=== PATIENT | male | born 1955 | race Hispanic/Latino ===

== ENCOUNTER 2019-04-03 18:19 | Inpatient (IN) | payer MEDICARE ==
[2019-04-03] MEDS ORDERED: EPINEPHrine 1 MG/ML AMP ONE (18:24)
[2019-04-03 18:39] LABS: #Basophils 0.1 thou/uL (0.0-0.2); #Eosinphils 0.1 thou/uL (0.0-0.7); #Lymphocytes 1.4 thou/uL (1.20-3.40); #Monocytes 0.7 thou/uL (0.11-0.59); #Neutrophils 8.4 thou/uL (1.40-6.50); %Basophils 0.8 % (0.0-1.0); %Eosinophils 1.2 % (0.0-10.0); %Lymphocytes 13.3 % (21.0-51.0); %Monocytes 6.6 % (0.0-10.0); %Neutrophils 78.1 % (42.0-75.0); Hemoglobin 12.3 g/dL (14.0-18.0); Mean Corpuscular HGB CONC 34.4 g/dL (32.0-36.0); Mean Corpuscular Hemoglobin 30.4 pg (27.0-31.0); Mean Corpuscular Volume 88.5 fL (78.0-98.0); Mean Platelet Volume 8.9 fL (7.4-10.4); Platelet Count 331 thou/uL (130-400); RBC Distribution Width 11.7 % (11.5-14.5); Red Blood Cell (RBC) Count 4.03 mill/uL (4.70-6.10); White Blood Cell (WBC) Count 10.8 thou/uL (4.8-10.8)
[2019-04-03 18:55] LABS: Phosphorus 4.9 mg/dL (2.3-4.7)
[2019-04-03] MEDS ORDERED: Albuterol Sulfate 2.5 mg/3 ml Neb ONE (18:57)
[2019-04-03 18:58] LABS: ALT (SGPT) 19 U/L (8-55); AST (SGOT) 17 U/L (5-34); Albumin 3.6 g/dL (3.4-4.8); Alkaline Phosphatase 171 U/L (40-110); Anion Gap 17 mmol/L (10-20); BUN (Urea Nitrogen) 36 mg/dL (8.4-25.7); Bilirubin, Total 0.7 mg/dL (0.2-1.2); Calc. Creatinine Clearance 0 mL/min (70-130); Calcium 9.7 mg/dL (7.8-10.44); Carbon Dioxide 27 mmol/L (23-31); Chloride 99 mmol/L (98-107); Estimated GFR-MDRD 58; Globulin 2.9 g/dL (2.4-3.5); Glucose 469 mg/dL (80-115); Potassium 4.7 mmol/L (3.5-5.1); Protein, Total 6.5 g/dL (5.8-8.1); Sodium 138 mmol/L (136-145)
--- NOTE | 2019-04-03 18:59 | RAD ---
AP CHEST: 04/03/19 HISTORY: Dyspnea. Lungs appear clear. Heart size is mildly prominent with postop sternotomy change. Vascular markings n ormal. IMPRESSION: No acute abnormality. POS: OFF
[2019-04-03 19:05] LABS: Bacteria/HPF None Seen HPF (None Seen); Bilirubin Negative (Negative); Blood, Urine Negative (Negative); Clarity Clear (Clear); Glucose, Urine (Dipstick) Greater than 1000 mg/dL (Negative); Leukocyte Negative Leu/uL (Negative); Nitrite Negative (Negative); Protein, Urine (Dipstick) 50 mg/dL (Neg-Trace); RBC/HPF 0-3 HPF (0-3); Squamous Epithelial 0-3 HPF (0-3); Urobilinogen Normal mg/dL (Less than 2); WBC/HPF 0-3 HPF (0-3)
[2019-04-03 19:07] LABS: Actual Bicarbonate (HCO3a) 26.9 mEq/L (22-28); Analyzer IN Cardio ER; Base Excess (BEa) 2.9 mEq/L (-2.0 to +3.0); CO2 Tension 39.2 mmHg (35.0-45.0); Calcium, Ionized 1.23 mmol/L (1.12-1.30); Carboxyhemoglobin (COHb) 0.3 gm% (0.0-3.0); Hemoglobin (Hb) 12.1 g/dL (14.0-18.0); Potassium - ABG Lab 4.19 mmol/L (3.70-5.30); pH, Arterial 7.46 (7.35-7.45)
[2019-04-03 19:24] LABS: O2 Tension (PaO2) 54.7 mmHg (> 80.0); Puncture Site RBA
[2019-04-03 20:01] LABS: Actual Bicarbonate (HCO3a) 25.7 mEq/L (22-28); Analyzer IN Cardio ER; Base Excess (BEa) 0.9 mEq/L (-2.0 to +3.0); CO2 Tension 41.6 mmHg (35.0-45.0); Calcium, Ionized 1.21 mmol/L (1.12-1.30); Carboxyhemoglobin (COHb) 0.3 gm% (0.0-3.0); Hemoglobin (Hb) 11.1 g/dL (14.0-18.0); O2 Tension (PaO2) 86.4 mmHg (> 80.0); Potassium - ABG Lab 4.08 mmol/L (3.70-5.30); pH, Arterial 7.41 (7.35-7.45)
--- NOTE | 2019-04-03 20:03 | RAD ---
Portable chest: HISTORY: Assess central line placement COMPARISON: Earlier today at 6:12 PM FINDINGS: Lung mckeon are clear. Heart and mediastinum appear unremarkable. Postop sternotomy changes again noted. Vascularity is normal. Visualized osseous structures unremarkable. Central line via the left jugular has tip overlying the upper SVC region. IMPRESSION: No acute finding
[2019-04-03 20:06] LABS: Puncture Site LBA
[2019-04-03] MEDS ORDERED: Acetaminophen 650 MG Suppository PR PRN (21:02)
[2019-04-03] MEDS ORDERED: Ondansetron ODT 4 MG TAB PO PRN (21:02)
[2019-04-03] MEDS ORDERED: Ondansetron PF 4 MG/2 ML Vial IVP PRN ×2 (21:02→21:06)
[2019-04-03] MEDS ORDERED: Sodium Chloride 0.9% 1,000 ML IV SCH (21:06)
[2019-04-03] MEDS ORDERED: Ondansetron ODT 4 MG TAB SL PRN (21:06)
[2019-04-03] MEDS ORDERED: EPINEPHrine 1 MG/ML AMP IM PRN (21:07)
[2019-04-03] MEDS ORDERED: Dextrose 50% Abboject 50 ML SYRINGE SLOW IVP PRN (21:09)
[2019-04-03] MEDS ORDERED: Dextrose 5% in Water 1,000 ML IV PRN (21:09)
[2019-04-03 22:25] LABS: Troponin I Less than 0.010 ng/mL (< 0.028)
[2019-04-03 22:39] VITALS: BMI 23.5
[2019-04-03] MEDS: Sodium Chloride 0.9% 1,000 ML IV SCH (23:49)
[2019-04-04] MEDS: NOVOLOG FLEXPEN SC SCH ×5 (00:05→22:41)
[2019-04-04 00:52] LABS: Troponin I 0.021 ng/mL (< 0.028)
[2019-04-04] MEDS: diphenhydrAMINE 50 MG/ML VIAL IVP PRN ×2 (01:33→06:05)
[2019-04-04 04:56] LABS: Anion Gap 12 mmol/L (10-20); BUN (Urea Nitrogen) 32 mg/dL (8.4-25.7); Calc. Creatinine Clearance 92 mL/min (70-130); Calcium 9.2 mg/dL (7.8-10.44); Carbon Dioxide 26 mmol/L (23-31); Chloride 104 mmol/L (98-107); Estimated GFR-MDRD Greater than 90; Glucose 224 mg/dL (80-115); Potassium 4.3 mmol/L (3.5-5.1); Sodium 138 mmol/L (136-145)
[2019-04-04 05:02] LABS: Band 8 % (5-11); Eosinophils 1 % (0-10); Hemoglobin 10.4 g/dL (14.0-18.0); Lymphocytes 4 % (21-51); MDiff Complete? YES; Mean Corpuscular Hemoglobin 29.9 pg (27.0-31.0); Mean Corpuscular Volume 87.9 fL (78.0-98.0); Mean Platelet Volume 8.9 fL (7.4-10.4); Neutrophil 86 % (42-75); Platelet Count 244 thou/uL (130-400); Platelet Morphology Comment Appears Adequate; RBC Distribution Width 11.4 % (11.5-14.5); RBC Morphology Normal; Reactive Lymphocytes 1 % (0-10); Red Blood Cell (RBC) Count 3.47 mill/uL (4.70-6.10); White Blood Cell (WBC) Count 14.1 thou/uL (4.8-10.8)
[2019-04-04] MEDS: Acetaminophen 325 MG TAB PO PRN (05:08)
[2019-04-04] MEDS: Sodium Chloride 0.9% 1,000 ML IV SCH (07:43)
[2019-04-04] MEDS: Enoxaparin Sodium 40 MG/0.4 ML SYRINGE SC SCH (08:10)
[2019-04-04] MEDS: Famotidine/PF 20 mg/2ml Vial SLOW IVP SCH ×2 (08:10→21:28)
--- NOTE | 2019-04-04 15:20 | PDOC.HOSPP ---
- Subjective Subjective: Patient is minimally verbal and severely hypophonic. Cannot effectively communicate. - Objective Vital Signs & Weight: Vital Signs (12 hours) Temp Pulse Ox 04/04/19 12:00 98.1 F 100 04/04/19 08:00 99.1 F 100 04/04/19 07:02 100 04/04/19 05:00 97.6 F Weight Weight 163 lb 12.855 oz Most Recent Monitor Data Heart Rate from ECG 91 NIBP 155/90 NIBP BP-Mean 111 Respiration from ECG 19 SpO2 100 I&O: 04/03/19 04/04/19 04/05/19 06:59 06:59 06:59 Intake Total 20 Output Total 660 420 Balance -660 -400 Result Diagrams: 04/04/19 04:30 04/04/19 04:30 Additional Labs: Accuchecks 04/04/19 04/03/19 11:19 18:39 POC Glucose 147 H 400 H Hospitalist ROS - Medication Medications: Active Medications Generic Name Dose Route Start Last Admin Trade Name Ravinq PRN Reason Stop Dose Admin Acetaminophen 650 mg 04/03/19 21:02 04/04/19 05:08 Tylenol PO 650 mg Q4H PRN Administration Headache/Fever/Mild Pain (1-3) Diphenhydramine HCl 50 mg 04/03/19 21:05 04/04/19 06:05 Benadryl IVP 50 mg Q6H PRN Administration rash Enoxaparin Sodium 40 mg 04/04/19 09:00 04/04/19 08:10 Lovenox SC 40 mg 0900 PÉREZ Administration Famotidine 20 mg 04/04/19 09:00 04/04/19 08:10 Pepcid SLOW IVP 20 mg BID PÉREZ Administration Novolog Flexpen 0 each 04/04/19 09:00 04/04/19 12:48 SC Not Given QID PÉREZ - Exam General Appearance: NAD, awake alert General - other findings: Chronically debilitated ENT: normocephalic atraumatic Neck: supple, symmetric, no JVD, no thyromegaly, no lymphadenopathy, no carotid bruit Heart: RRR, no murmur, no gallops Respiratory: CTAB, no wheezes, no rales, no ronchi, normal chest expansion Gastrointestinal: soft, non-tender, non-distended, normal bowel sounds, no palpable masses, no hepatomegaly, no splenomegaly, no bruit Gastrointestinal - other findings: PEG Extremities: no edema Neurological - other findings: Legs immobile. UE's contracted, but have some movement. Musculoskeletal: generalized weakness Hosp A/P (1) Anoxic brain damage syndrome Status: Acute (2) Anaphylactic reaction Code(s): T78.2XXA - ANAPHYLACTIC SHOCK, UNSPECIFIED, INITIAL ENCOUNTER Status : Acute (3) Acute respiratory failure with hypoxia Code(s): J96.01 - ACUTE RESPIRATORY FAILURE WITH HYPOXIA Status: Acute - Plan This patient came from [facility]. I don't have all of the history, but apparently had a respiratory event leading to anoxic brain injury, LE paralysis and incomplete UE paralysis. Has PEG tube and per nurse the feeding regimen is Glucerna at 60 cc/hr x 20 hours per day. Will resume feeds. No evidence of persistent allergic reaction. Medically stable for discharge, but family has decided they want to take him home. Consulted CM. He will be total care with PEG. They will need HH and possibly some DME. Will transfer to the Medical floor. Will get PT, OT consults to assist with determining home needs.
[2019-04-04] MEDS ORDERED: Dextrose 50% Abboject 50 ML SYRINGE SLOW IVP PRN (15:27)
[2019-04-04] MEDS ORDERED: Dextrose 5% in Water 1,000 ML IV PRN (15:27)
[2019-04-04] MEDS ORDERED: Acetaminophen 325 MG TAB PO PRN (15:48)
[2019-04-04] MEDS ORDERED: Non-Formulary Item 1 EACH (Insulin Detemir [Levemir] 50 UNITS) SQ SCH (21:00)
[2019-04-04] MEDS ORDERED: FLU VACC TS2019-20(65YR UP)/PF 180 MCG/0.5 ML SYRINGE IM ONE (21:00)
[2019-04-04] MEDS ORDERED: Prevnar 13-Val Conj/PF 0.5 ML SYRINGE IM ONE (21:00)
[2019-04-04] MEDS: Aspirin 81 mg Enteric Coated Tablet PO SCH (21:02)
[2019-04-04] MEDS: Lisinopril 5 MG TAB PO SCH (21:03)
[2019-04-04] MEDS: Carvedilol 6.25 MG TAB PO SCH (21:27)
[2019-04-04] MEDS: Insulin Glargine 50 UNITS in Pre-Filled Syringe 1 EACH SC SCH (21:29)
[2019-04-05] MEDS: Alogliptin 25 MG TAB PO SCH (08:43)
[2019-04-05] MEDS: Lisinopril 5 MG TAB PO SCH ×2 (08:43→20:38)
[2019-04-05] MEDS: Famotidine/PF 20 mg/2ml Vial SLOW IVP SCH ×2 (08:44→20:39)
[2019-04-05] MEDS: Carvedilol 6.25 MG TAB PO SCH ×2 (08:44→20:38)
[2019-04-05] MEDS: FLUoxetine HCl 20 MG CAP PO SCH (08:44)
[2019-04-05] MEDS: Atorvastatin Calcium 40 MG TAB PO SCH (08:44)
[2019-04-05] MEDS: Aspirin 81 mg Enteric Coated Tablet PO SCH ×2 (08:44→20:36)
[2019-04-05] MEDS: Enoxaparin Sodium 40 MG/0.4 ML SYRINGE SC SCH (08:45)
[2019-04-05] MEDS: Insulin Glargine 50 UNITS in Pre-Filled Syringe 1 EACH SC SCH ×2 (08:45→20:39)
[2019-04-05] MEDS: NOVOLOG FLEXPEN SC SCH ×4 (08:46→20:55)
--- NOTE | 2019-04-05 09:26 | HP ---
PRIMARY CARE DOCTOR: None reported. CODE STATUS: Full code. TIME OF EVALUATION: 8:50 p.m. CHIEF COMPLAINT: Shortness of breath. HISTORY OF PRESENT ILLNESS: This is a 64-year-old male patient with past medical history of diabetes, allergies to Humalog, early stage of dementia, came to the hospital after being in the snf. The patient was given Humalog. The patient was allergic to Humalog. The patient developed severe anaphylactic reaction with universal distribution of a rash and hives, shortness of breath and stridor with hypotension. The patient responded to initial approach, treated with epinephrine that needed to be given twice. He also was treated with Benadryl. The symptoms were severe, triggered by the allergies to Humalog and alleviated with epinephrine. REVIEW OF SYSTEMS: Unable to obtain. The patient is nonverbal. PAST MEDICAL HISTORY: Includes diabetes, allergies to Humalog, hyperlipidemia, hypertension, and early stage of dementia. PAST SURGICAL HISTORY: Cardiac cath and CABG in 2016. PSYCHIATRIC HISTORY: Depression. SOCIAL HISTORY: The patient used to drink, 5 drinks per day. Smokes cigarettes daily, 5 cigarettes a day. FAMILY HISTORY: Reviewed and noncontributor7 . KNOWN ALLERGIES: To Humalog. The only medication he can take for his treatment is NovoLog or Levemir as stated by daughter. Also allergies to penicillin. REPORTED MEDICATIONS: Januvia, fluoxetine, lisinopril, carvedilol, atorvastatin , aspirin, NovoLog, Levemir. PHYSICAL EXAMINATION: VITAL SIGNS: On presentation, blood pressure is 94/65, heart rate 101, respiratory rate was 32, oxygen saturation 99% on room air. Nonrebreather during treatment. Occasionally, blood pressure 102-120, likely due to the stress in need to give epinephrine to correct hypotension from anaphylaxis. GENERAL APPEARANCE: The patient is alert, in mild respiratory distress, but much improved when compared to arrival time. The patient is in nonrebreather mask. HEENT: Eyes, normal conjunctivae. Dry oral mucosa. Anicteric. No JVD. RESPIRATORY: Bilateral air entry. No rales. No wheezing. Symmetric expansion. No stridor. CARDIOVASCULAR: The patient is tachycardic. Regular rhythm. No murmurs. No gallop. No edema. ABDOMEN: Soft. Normal bowel sounds. MUSCULOSKELETAL: Baseline range of motion and strength. SKIN: Warm and intact. No pallor. No rash. No redness. Capillary refill seems to be intact. NEURO: The patient is nonverbal. The patient has a history of sequela of having this problem since previous admission while he was in rehabilitation. Communicates mildly through a few words. PSYCH: Unable to fully explore. DIAGNOSTIC STUDIES: EKG, the patient has normal sinus rhythm with a rate of 89. No findings in favor of acute ischemic disease. Chest x-ray was done, which showed no acute abnormalities. Repeat x-ray showed no acute findings. Central line via left jugular has tip overlying the upper SVC region. LABORATORY DATA: Reviewed. The patient has white count 10.8, hemoglobin 12.3, MCV 88.5, platelet count 331. Blood gas was done, the patient has a pH of 7.41, pCO2 41.6, PO2 86.4. Chemistry; sodium 138, potassium 4.7, chloride 99, carbon dioxide 27, anion gap 17, BUN 36, creatinine 1.35, GFR 58, glucose 469, calcium 9.7, phosphorus 4.9, magnesium 2.0, total bilirubin 0.7, AST 17, ALT 19, alkaline phosphatase 171. Troponin 0.03. Total protein 6.5, albumin 3.6, globulin 2.9. Urine was done and showed glucosuria, no white cells. Beta hydroxybutyrate was negative. ASSESSMENT AND PLAN: The patient will be placed in the hospital with following medical problems: 1. Anaphylactic reaction with shock. The patient has severe reaction to Humalog , has recovered after having epinephrine given twice and Benadryl. By the time of my examination, the patient is still tachycardic. However, pressure was recovered. The patient is getting some fluids. We will continue Benadryl p.r.n. We will not give steroids at this point since the patient is hyperglycemic and we will give Pepcid. We will place in ICU. If further reaction appears, we will repeat doses of epinephrine. 2. Acute hypoxic respiratory failure secondary to anaphylactic reaction. The patient has bilateral wheezing. Saturation dropped early presentation. By the time of my examination, these parameters have improved. We will try to wean him off from the non-rebreather mask. 3. Uncontrolled diabetes with glucose 469. We will reconcile home medications. The patient is able to take only NovoLog and Levemir as per daughter's report. family to bring the patient's home medications to be able to be given as inpatient. 4. Deep venous thrombosis prophylaxis. 5. Hypertension, that was also initially uncontrolled due to anaphylactic reaction went from hypotension to blood pressure in the 200s due to medication effect- Epinephrine. We will reconcile home medications and adjust treatment as needed. We will not treat aggressively since the patient has high risk still for hypotension due to half life of Humalog. 6. History of coronary artery disease. This is a chronic problem, seems to be stable. Reconcile home medications. 7. Hyperlipidemia. The patient is on atorvastatin. We will continue for now. 8. . Job ID: [id number] [email or web address]
--- NOTE | 2019-04-05 16:32 | PDOC.HOSPP ---
- Subjective Subjective: Doing well overall. Non-communicative. - Objective Vital Signs & Weight: Vital Signs (12 hours) Temp Pulse Resp BP BP Pulse Ox 04/05/19 08:44 161/70 H 04/05/19 08:43 89 161/70 H 04/05/19 07:32 99.1 F 89 18 161/70 H 92 L Weight Admit Weight 163 lb 12.855 oz Weight 163 lb 12.855 oz Most Recent Monitor Data Heart Rate from ECG 87 NIBP 179/92 NIBP BP-Mean 121 Respiration from ECG 27 SpO2 100 I&O: 04/04/19 04/05/19 04/06/19 06:59 06:59 06:59 Intake Total 1114 80 Output Total 660 420 Balance -660 694 80 Result Diagrams: 04/04/19 04:30 04/04/19 04:30 Additional Labs: Accuchecks 04/05/19 04/05/19 04/05/19 11:24 10:35 08:56 POC Glucose 228 H 250 H 287 H 04/04/19 20:56 POC Glucose 224 H Hospitalist ROS - Medication Medications: Active Medications Generic Name Dose Route Start Last Admin Trade Name Freq PRN Reason Stop Dose Admin Acetaminophen 650 mg 04/03/19 21:02 04/04/19 05:08 Tylenol PO 650 mg Q4H PRN Administration Headache/Fever/Mild Pain (1-3) Alogliptin Benzoate 25 mg 04/05/19 09:00 04/05/19 08:43 Alogliptin PO 25 mg DAILY PÉREZ Administration Aspirin 81 mg 04/04/19 21:00 04/05/19 08:44 Ecotrin PO 81 mg BID PÉREZ Administration Atorvastatin Calcium 40 mg 04/05/19 09:00 04/05/19 08:44 Lipitor PO 40 mg DAILY PÉREZ Administration Carvedilol 6.25 mg 04/04/19 21:00 04/05/19 08:44 Coreg PO 6.25 mg BID PÉREZ Administration Diphenhydramine HCl 50 mg 04/03/19 21:05 04/04/19 06:05 Benadryl IVP 50 mg Q6H PRN Administration rash Enoxaparin Sodium 40 mg 04/04/19 09:00 04/05/19 08:45 Lovenox SC 40 mg 09 PÉREZ Administration Famotidine 20 mg 04/04/19 09:00 04/05/19 08:44 Pepcid SLOW IVP 20 mg BID PÉREZ Administration Fluoxetine HCl 20 mg 04/05/19 09:00 04/05/19 08:44 Prozac PO 20 mg DAILY PÉREZ Administration Insulin Glargine 50 units/ 0.5 mls @ 0 mls/hr 04/04/19 21:00 04/04/19 21:29 Miscellaneous Medication SC 0.5 mls HS PÉREZ Administration Insulin Glargine 50 units/ 0.5 mls @ 0 mls/hr 04/05/19 09:00 04/05/19 08:45 Miscellaneous Medication SC 0.5 mls QAM PÉREZ Administration Lisinopril 5 mg 04/04/19 21:00 04/05/19 08:43 Zestril PO 5 mg BID PÉREZ Administration Novolog Flexpen 0 each 04/04/19 09:00 04/05/19 12:40 SC 1 each QID PÉREZ Administration - Exam General Appearance: NAD, awake alert Heart: RRR, no murmur, no gallops, no rubs, normal peripheral pulses Respiratory: CTAB, no wheezes, no rales, no ronchi, normal chest expansion, no tachypnea, normal percussion Gastrointestinal: soft, non-tender, non-distended, normal bowel sounds, no palpable masses, no hepatomegaly, no splenomegaly, no bruit Gastrointestinal - other findings: PEG Extremities: no cyanosis, no clubbing, no edema Neurological - other findings: Incomplete quadriplegia. Can move UE's a little. Musculoskeletal: diffuse muscle atrophy Psychiatric: not oriented Psychiatric - other findings: Dementia. Non-communicative. Does not follow commands. Hosp A/P (1) Anoxic brain damage syndrome Status: Acute (2) Anaphylactic reaction Code(s): T78.2XXA - ANAPHYLACTIC SHOCK, UNSPECIFIED, INITIAL ENCOUNTER Status : Acute (3) Acute respiratory failure with hypoxia Code(s): J96.01 - ACUTE RESPIRATORY FAILURE WITH HYPOXIA Status: Acute (4) Quadriplegia Code(s): G82.50 - QUADRIPLEGIA, UNSPECIFIED Status: Acute (5) Dementia Code(s): F03.90 - UNSPECIFIED DEMENTIA WITHOUT BEHAVIORAL DISTURBANCE Status: Acute (6) Diabetes mellitus Code(s): E11.9 - TYPE 2 DIABETES MELLITUS WITHOUT COMPLICATIONS Status: Acute - Plan This patient came from [facility]. Respiratory event leading to anoxic brain injury, incomplete quadriplegia. Has PEG tube. Appreciate Manager Inpatient recommendations. No evidence of persistent allergic reaction. Medically stable for discharge, but family has decided they want to take him home. Consulted CM. He will be total care with PEG. They will need HH and possibly some DME. Will get PT, OT consults to assist with determining home needs. Lond discussion with the patient's family. They are committed to taking him home and caring for him. Discussed the concerns for decubiti, pneumonia/ aspiration and UTI over time. Will do what we can to help them be successful.
[2019-04-05] MEDS: Acetaminophen 325 MG TAB PO PRN (20:37)
[2019-04-06 04:37] LABS: #Eosinphils 0.3 thou/uL (0.0-0.7); #Lymphocytes 1.1 thou/uL (1.20-3.40); #Monocytes 0.5 thou/uL (0.11-0.59); #Neutrophils 8.2 thou/uL (1.40-6.50); %Basophils 0.3 % (0.0-1.0); %Eosinophils 2.9 % (0.0-10.0); %Lymphocytes 10.9 % (21.0-51.0); %Monocytes 5.1 % (0.0-10.0); %Neutrophils 80.8 % (42.0-75.0); Hemoglobin 9.8 g/dL (14.0-18.0); Mean Corpuscular HGB CONC 34.2 g/dL (32.0-36.0); Mean Corpuscular Hemoglobin 30.6 pg (27.0-31.0); Mean Corpuscular Volume 89.4 fL (78.0-98.0); Mean Platelet Volume 8.4 fL (7.4-10.4); Platelet Count 236 thou/uL (130-400); RBC Distribution Width 11.7 % (11.5-14.5); Red Blood Cell (RBC) Count 3.19 mill/uL (4.70-6.10); White Blood Cell (WBC) Count 10.1 thou/uL (4.8-10.8)
[2019-04-06 04:55] LABS: Anion Gap 13 mmol/L (10-20); BUN (Urea Nitrogen) 25 mg/dL (8.4-25.7); Calc. Creatinine Clearance 90 mL/min (70-130); Calcium 8.8 mg/dL (7.8-10.44); Carbon Dioxide 24 mmol/L (23-31); Chloride 106 mmol/L (98-107); Estimated GFR-MDRD 89; Glucose 160 mg/dL (80-115); Potassium 3.5 mmol/L (3.5-5.1); Sodium 139 mmol/L (136-145)
[2019-04-06] MEDS: Carvedilol 6.25 MG TAB PO SCH ×2 (08:40→21:05)
[2019-04-06] MEDS: Aspirin 81 mg Enteric Coated Tablet PO SCH ×2 (08:40→21:05)
[2019-04-06] MEDS: Alogliptin 25 MG TAB PO SCH (08:40)
[2019-04-06] MEDS: Atorvastatin Calcium 40 MG TAB PO SCH (08:40)
[2019-04-06] MEDS: Lisinopril 5 MG TAB PO SCH ×2 (08:41→21:05)
[2019-04-06] MEDS: FLUoxetine HCl 20 MG CAP PO SCH (08:41)
[2019-04-06] MEDS: Enoxaparin Sodium 40 MG/0.4 ML SYRINGE SC SCH (08:42)
[2019-04-06] MEDS: Famotidine/PF 20 mg/2ml Vial SLOW IVP SCH ×2 (08:42→21:05)
[2019-04-06] MEDS: Insulin Glargine 50 UNITS in Pre-Filled Syringe 1 EACH SC SCH ×2 (08:43→21:03)
[2019-04-06] MEDS: NOVOLOG FLEXPEN SC SCH ×4 (08:44→21:02)
--- NOTE | 2019-04-06 16:11 | PDOC.HOSPP ---
- Subjective Subjective: Doing ok. Family has decided that they want to pursue SNF rather than trying to take him home. - Objective Vital Signs & Weight: Vital Signs (12 hours) Temp Pulse Resp BP BP Pulse Ox 04/06/19 08:41 89 163/80 H 04/06/19 08:40 163/80 H 04/06/19 08:00 95 04/06/19 07:43 98.7 F 89 18 163/80 H 95 Weight Admit Weight 163 lb 12.855 oz Weight 163 lb 12.855 oz Most Recent Monitor Data Heart Rate from ECG 87 NIBP 179/92 NIBP BP-Mean 121 Respiration from ECG 27 SpO2 100 I&O: 04/05/19 04/06/19 04/07/19 06:59 06:59 06:59 Intake Total 1114 1535 Output Total 420 Balance 694 1535 Result Diagrams: 04/06/19 04:01 04/06/19 04:01 Additional Labs: Accuchecks 04/06/19 04/06/19 04/05/19 11:15 05:10 20:29 POC Glucose 161 H 190 H 149 H 04/05/19 04/05/19 15:52 04:55 POC Glucose 183 H 284 H Hospitalist ROS - Medication Medications: Active Medications Generic Name Dose Route Start Last Admin Trade Name Freq PRN Reason Stop Dose Admin Acetaminophen 650 mg 04/03/19 21:02 04/05/19 20:37 Tylenol PO 650 mg Q4H PRN Administration Headache/Fever/Mild Pain (1-3) Alogliptin Benzoate 25 mg 04/05/19 09:00 04/06/19 08:40 Alogliptin PO 25 mg DAILY PÉREZ Administration Aspirin 81 mg 04/04/19 21:00 04/06/19 08:40 Ecotrin PO 81 mg BID PÉREZ Administration Atorvastatin Calcium 40 mg 04/05/19 09:00 04/06/19 08:40 Lipitor PO 40 mg DAILY PÉREZ Administration Carvedilol 6.25 mg 04/04/19 21:00 04/06/19 08:40 Coreg PO 6.25 mg BID PÉREZ Administration Diphenhydramine HCl 50 mg 04/03/19 21:05 04/04/19 06:05 Benadryl IVP 50 mg Q6H PRN Administration rash Enoxaparin Sodium 40 mg 04/04/19 09:00 04/06/19 08:42 Lovenox SC 40 mg 0900 PÉREZ Administration Famotidine 20 mg 04/04/19 09:00 04/06/19 08:42 Pepcid SLOW IVP 20 mg BID PÉREZ Administration Fluoxetine HCl 20 mg 04/05/19 09:00 04/06/19 08:41 Prozac PO 20 mg DAILY PÉREZ Administration Insulin Glargine 50 units/ 0.5 mls @ 0 mls/hr 04/04/19 21:00 04/05/19 20:39 Miscellaneous Medication SC 0.5 mls HS PÉREZ Administration Insulin Glargine 50 units/ 0.5 mls @ 0 mls/hr 04/05/19 09:00 04/06/19 08:43 Miscellaneous Medication SC 0.5 mls QAM PÉREZ Administration Lisinopril 5 mg 04/04/19 21:00 04/06/19 08:41 Zestril PO 5 mg BID PÉREZ Administration Novolog Flexpen 0 each 04/04/19 09:00 04/06/19 13:50 SC 1 each QID PÉREZ Administration - Exam General Appearance: NAD, awake alert Neck: supple, symmetric, no JVD, no thyromegaly, no lymphadenopathy, no carotid bruit Heart: RRR, no murmur, no gallops, no rubs, normal peripheral pulses Respiratory: CTAB, no wheezes, no rales, no ronchi, normal chest expansion, no tachypnea, normal percussion Gastrointestinal: soft, non-tender, non-distended, normal bowel sounds, no palpable masses, no hepatomegaly, no splenomegaly, no bruit Skin: normal turgor Neurological - other findings: Quad Musculoskeletal: generalized weakness Psychiatric: not oriented Hosp A/P (1) Anoxic brain damage syndrome Status: Acute (2) Anaphylactic reaction Code(s): T78.2XXA - ANAPHYLACTIC SHOCK, UNSPECIFIED, INITIAL ENCOUNTER Status : Acute (3) Acute respiratory failure with hypoxia Code(s): J96.01 - ACUTE RESPIRATORY FAILURE WITH HYPOXIA Status: Acute (4) Quadriplegia Code(s): G82.50 - QUADRIPLEGIA, UNSPECIFIED Status: Acute (5) Dementia Code(s): F03.90 - UNSPECIFIED DEMENTIA WITHOUT BEHAVIORAL DISTURBANCE Status: Acute (6) Diabetes mellitus Code(s): E11.9 - TYPE 2 DIABETES MELLITUS WITHOUT COMPLICATIONS Status: Acute - Plan This patient came from [facility]. Respiratory event leading to anoxic brain injury, incomplete quadriplegia. Has PEG tube. Appreciate Cheerleading Coach recommendations. No evidence of persistent allergic reaction. Medically stable for discharge, but family had decided they want to take him home. Now want to pursue SNF. Consulted CM. Will get PT, OT consults to determine skilled needs. .
[2019-04-07 08:36] LABS: Hemoglobin 11.1 g/dL (14.0-18.0)
[2019-04-07] MEDS: Acetaminophen 325 MG TAB PO PRN (08:44)
[2019-04-07] MEDS: Aspirin 81 mg Enteric Coated Tablet PO SCH ×2 (08:45→20:34)
[2019-04-07] MEDS: Lisinopril 5 MG TAB PO SCH ×2 (08:46→20:35)
[2019-04-07] MEDS: Alogliptin 25 MG TAB PO SCH (08:46)
[2019-04-07] MEDS: Atorvastatin Calcium 40 MG TAB PO SCH (08:47)
[2019-04-07] MEDS: FLUoxetine HCl 20 MG CAP PO SCH (08:48)
[2019-04-07] MEDS: Famotidine/PF 20 mg/2ml Vial SLOW IVP SCH ×2 (08:48→20:35)
[2019-04-07] MEDS: Enoxaparin Sodium 40 MG/0.4 ML SYRINGE SC SCH (08:51)
[2019-04-07] MEDS: Carvedilol 6.25 MG TAB PO SCH ×2 (08:51→20:35)
[2019-04-07] MEDS: Insulin Glargine 50 UNITS in Pre-Filled Syringe 1 EACH SC SCH (08:58)
[2019-04-07] MEDS: NOVOLOG FLEXPEN SC SCH ×4 (08:59→20:38)
--- NOTE | 2019-04-07 16:02 | PDOC.HOSPP ---
- Subjective Subjective: Doing well per family. Had been more alert yesterday and a little more tired today. They report he has had some fever. Query the future use of his hands. Family is concerned that he is constipated. He appears to be straining like he is trying to have a BM. He apparently had two BM's yesterday that were normal consistency. - Objective Vital Signs & Weight: Vital Signs (12 hours) Temp Pulse Resp BP BP Pulse Ox 04/07/19 15:45 97.6 F 78 20 165/81 H 93 L 04/07/19 11:55 98.0 F 78 18 147/78 H 95 04/07/19 08:51 194/98 H 04/07/19 08:46 91 194/98 H 04/07/19 08:00 99.5 F 91 22 H 194/98 H 95 Weight Admit Weight 163 lb 12.855 oz Weight 163 lb 12.855 oz Most Recent Monitor Data Heart Rate from ECG 87 NIBP 179/92 NIBP BP-Mean 121 Respiration from ECG 27 SpO2 100 I&O: 04/06/19 04/07/19 04/08/19 06:59 06:59 06:59 Intake Total 1535 Balance 1535 Result Diagrams: 04/07/19 08:12 04/06/19 04:01 Additional Labs: Accuchecks 04/07/19 04/07/19 04/07/19 11:15 09:01 04:19 POC Glucose 246 H 267 H 172 H 04/06/19 04/06/19 19:48 15:53 POC Glucose 92 116 H Hospitalist ROS - Medication Medications: Active Medications Generic Name Dose Route Start Last Admin Trade Name Wes PRN Reason Stop Dose Admin Acetaminophen 650 mg 04/03/19 21:02 04/07/19 08:44 Tylenol PO 650 mg Q4H PRN Administration Headache/Fever/Mild Pain (1-3) Alogliptin Benzoate 25 mg 04/05/19 09:00 04/07/19 08:46 Alogliptin PO 25 mg DAILY PÉREZ Administration Aspirin 81 mg 04/04/19 21:00 04/07/19 08:45 Ecotrin PO 81 mg BID PÉREZ Administration Atorvastatin Calcium 40 mg 04/05/19 09:00 04/07/19 08:47 Lipitor PO 40 mg DAILY PÉREZ Administration Carvedilol 12.5 mg 04/07/19 09:00 04/07/19 08:51 Coreg PO 12.5 mg BID PÉREZ Administration Diphenhydramine HCl 50 mg 04/03/19 21:05 04/04/19 06:05 Benadryl IVP 50 mg Q6H PRN Administration rash Enoxaparin Sodium 40 mg 04/04/19 09:00 04/07/19 08:51 Lovenox SC 40 mg 0900 PÉREZ Administration Famotidine 20 mg 04/04/19 09:00 04/07/19 08:48 Pepcid SLOW IVP 20 mg BID PÉREZ Administration Fluoxetine HCl 20 mg 04/05/19 09:00 04/07/19 08:48 Prozac PO 20 mg DAILY PÉREZ Administration Insulin Glargine 50 units/ 0.5 mls @ 0 mls/hr 04/05/19 09:00 04/07/19 08:58 Miscellaneous Medication SC 0.5 mls QAM PÉREZ Administration Lisinopril 5 mg 04/04/19 21:00 04/07/19 08:46 Zestril PO 5 mg BID PÉREZ Administration Novolog Flexpen 0 each 04/04/19 09:00 04/07/19 12:19 SC 1 each QID PÉREZ Administration - Exam General Appearance: NAD, awake alert Heart: RRR, no murmur, no gallops, no rubs, normal peripheral pulses Respiratory: CTAB, no wheezes, no rales, no ronchi, normal chest expansion, no tachypnea, normal percussion Gastrointestinal: soft, non-tender, non-distended, normal bowel sounds, no palpable masses, no hepatomegaly, no splenomegaly, no bruit Gastrointestinal - other findings: PEG Skin: normal turgor Musculoskeletal - other findings: Incomplete quad Psychiatric: normal affect, normal behavior, A&O x 3 Hosp A/P (1) Anoxic brain damage syndrome Status: Acute (2) Anaphylactic reaction Code(s): T78.2XXA - ANAPHYLACTIC SHOCK, UNSPECIFIED, INITIAL ENCOUNTER Status : Acute (3) Acute respiratory failure with hypoxia Code(s): J96.01 - ACUTE RESPIRATORY FAILURE WITH HYPOXIA Status: Acute (4) Quadriplegia Code(s): G82.50 - QUADRIPLEGIA, UNSPECIFIED Status: Acute (5) Dementia Code(s): F03.90 - UNSPECIFIED DEMENTIA WITHOUT BEHAVIORAL DISTURBANCE Status: Acute (6) Diabetes mellitus Code(s): E11.9 - TYPE 2 DIABETES MELLITUS WITHOUT COMPLICATIONS Status: Acute - Plan Respiratory event leading to anoxic brain injury, incomplete quadriplegia. Has PEG tube. Appreciate Absorption And Adsorption Engineer recommendations. Implementing recommendation. No evidence of persistent allergic reaction. Medically stable for discharge, but family had decided they want to take him home. Now want to pursue SNF. Consulted CM. Will get PT, OT consults to determine skilled needs. . Increasing Coreg for BP control. Increasing Lantus at HS. Blood sugars are not well controlled and may be a little higher with increasing feeds. Will add a PRN for constipation, but I am concerned he may have some loosening of the stools with increased feeds.
[2019-04-07] MEDS ORDERED: Insulin Glargine 60 UNITS in Pre-Filled Syringe 1 EACH SC SCH (21:00)
[2019-04-08 07:50] VITALS: TEMP 98
[2019-04-08] MEDS: FLUoxetine HCl 20 MG CAP PO SCH (08:30)
[2019-04-08] MEDS: Alogliptin 25 MG TAB PO SCH (08:30)
[2019-04-08] MEDS: Atorvastatin Calcium 40 MG TAB PO SCH (08:30)
[2019-04-08] MEDS: Acetaminophen 325 MG TAB PO PRN (08:30)
[2019-04-08] MEDS: Famotidine/PF 20 mg/2ml Vial SLOW IVP SCH (08:30)
[2019-04-08] MEDS: Aspirin 81 mg Enteric Coated Tablet PO SCH (08:30)
[2019-04-08] MEDS: Carvedilol 6.25 MG TAB PO SCH (08:31)
[2019-04-08] MEDS: NOVOLOG FLEXPEN SC SCH (08:31)
[2019-04-08] MEDS: Lisinopril 5 MG TAB PO SCH (08:31)
[2019-04-08 08:37] VITALS: BP 157/88
[2019-04-08] MEDS: Enoxaparin Sodium 40 MG/0.4 ML SYRINGE SC SCH (08:37)
[2019-04-08] MEDS: Insulin Glargine 50 UNITS in Pre-Filled Syringe 1 EACH SC SCH (09:12)
--- NOTE | 2019-04-10 23:07 | EKG ---
Test Reason : Blood Pressure : / mmHG Vent. Rate : 089 BPM Atrial Rate : 089 BPM P-R Int : 158 ms QRS Dur : 082 ms QT Int : 366 ms P-R-T Axes : 066 -05 022 degrees QTc Int : 445 ms Normal sinus rhythm Inferior infarct , age undetermined No STEMI Abnormal ECG Confirmed by JEANINE Perez, MARK ([id number]), state editor LAWSON MCDONALD ([id number]) on 04/10/2019 11:07:27 PM Referred By: Confirmed By:MARK SOLORZANO M.D.
== END 2019-04-08 15:03 | DRG 915 ==
LOC: ERS 18:19 → CCU 20:59 → T4-B 04-04 16:39
PROVIDERS: ADMIT Hospitalist; ATTEND Hospitalist
DX: T88.6XXA Anaphylactic reaction due to adverse effect of correct drug or medicament properly administered, initial encounter (principal); J96.01 Acute respiratory failure with hypoxia; G82.50 Quadriplegia, unspecified; G93.1 Anoxic brain damage, not elsewhere classified; T38.3X5A Adverse effect of insulin and oral hypoglycemic [antidiabetic] drugs, initial encounter; F03.90 Unspecified dementia, unspecified severity, without behavioral disturbance, psychotic disturbance, mood disturbance, and anxiety; I10 Essential (primary) hypertension; I25.10 Atherosclerotic heart disease of native coronary artery without angina pectoris; F17.210 Nicotine dependence, cigarettes, uncomplicated; E78.5 Hyperlipidemia, unspecified; F32.9 Major depressive disorder, single episode, unspecified; K59.00 Constipation, unspecified; E11.65 Type 2 diabetes mellitus with hyperglycemia; Z88.0 Allergy status to penicillin; Z95.1 Presence of aortocoronary bypass graft
CPT/HCPCS: 36415; 36416; 36556; 51702; 71045; 80048; 80053; 81003; 81015; 82010; 82805; 83735; 84100; 84484; 85014; 85018; 85025; 87040; 87086; 90471; 90662; 90670; 93005; 94640; 96360; 96372; G0008; G0009; J0171; J1200; J1650; J1815; J7611; S0028

== ENCOUNTER 2020-06-25 13:44 | Emergency (ER) | payer MEDICARE, OTHER ==
[2020-06-25] MEDS ORDERED: Lidocaine 4% Cream 5 GM TUBE w/ Tegaderm ONE (13:56)
--- NOTE | 2020-06-25 14:44 | CT ---
CT Brain WO Con: 06/25/2020 2:30 PM CLINICAL HISTORY: Head injury. IMAGING TECHNIQUE: Multiple CT images were obtained of the brain without IV contrast. COMPARISON: Prior CT the brain dated every 2019 FINDINGS: BRAIN: Evidence of acute infarct: None. 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 Evidence of intracranial hemorrhage: None. Evidence of brain volume loss:There is mild generalized cerebral and cerebellar atrophy. Evidence of midline shift: Third ventricle and septum pellucidum are midline. Ventricles: Normal. No hydrocephalus. SKULL: Intact. VISUALIZED PARANASAL SINUSES: There is mild mucosal thickening in the sphenoid sinus. MASTOID AIR CELLS: There is partial effusion of the right mastoid air cells which is stable. EXTRACRANIAL SOFT TISSUES: Normal. IMPRESSION: No acute intracranial abnormality.
== END 2020-06-25 15:15 | disposition home or self-care (01) ==
LOC: ERS 13:44
DX: S01.81XA Laceration without foreign body of other part of head, initial encounter (principal); Z79.82 Long term (current) use of aspirin; F03.90 Unspecified dementia, unspecified severity, without behavioral disturbance, psychotic disturbance, mood disturbance, and anxiety; I10 Essential (primary) hypertension; E11.9 Type 2 diabetes mellitus without complications; W05.0XXA Fall from non-moving wheelchair, initial encounter; Z79.899 Other long term (current) drug therapy
CPT/HCPCS: 12013; 70450

== ENCOUNTER 2020-09-27 04:28 | Observation (INO) | payer MEDICARE, MEDICAID ==
[2020-09-27 05:16] LABS: #Basophils 0.1 thou/uL (0.0-0.2); #Eosinphils 0.7 thou/uL (0.0-0.7); #Lymphocytes 2.1 thou/uL (1.20-3.40); #Monocytes 0.7 thou/uL (0.11-0.59); #Neutrophils 7.2 thou/uL (1.40-6.50); %Basophils 0.5 % (0.0-1.0); %Eosinophils 6.5 % (0.0-10.0); %Lymphocytes 19.6 % (21.0-51.0); %Monocytes 6.3 % (0.0-10.0); %Neutrophils 67.1 % (42.0-75.0); Hemoglobin 12.5 g/dL (14.0-18.0); Mean Corpuscular HGB CONC 32.6 g/dL (32.0-36.0); Mean Corpuscular Hemoglobin 27.9 pg (27.0-31.0); Mean Corpuscular Volume 85.5 fL (78.0-98.0); Mean Platelet Volume 9.2 fL (7.4-10.4); Platelet Count 151 thou/uL (130-400); RBC Distribution Width 12.4 % (11.5-14.5); Red Blood Cell (RBC) Count 4.49 mill/uL (4.70-6.10); White Blood Cell (WBC) Count 10.6 thou/uL (4.8-10.8)
[2020-09-27] MEDS ORDERED: Aspirin Chewable 81 MG TAB ONE (05:28)
[2020-09-27 05:29] LABS: ALT (SGPT) 28 U/L (8-55); AST (SGOT) 18 U/L (5-34); Albumin 3.7 g/dL (3.4-4.8); Alkaline Phosphatase 213 U/L (40-110); Anion Gap 10 mmol/L (10-20); BUN (Urea Nitrogen) 21 mg/dL (8.4-25.7); Bilirubin, Total 0.6 mg/dL (0.2-1.2); Calc. Creatinine Clearance 0 mL/min (70-130); Calcium 9.2 mg/dL (7.8-10.44); Carbon Dioxide 30 mmol/L (23-31); Chloride 104 mmol/L (98-107); Globulin 3.4 g/dL (2.4-3.5); Glucose 93 mg/dL (80-115); Lipase 23 U/L (8-78); Magnesium 1.7 mg/dL (1.6-2.6); Potassium 4.4 mmol/L (3.5-5.1); Protein, Total 7.1 g/dL (5.8-8.1); Sodium 140 mmol/L (136-145)
[2020-09-27 08:55] LABS: Troponin I 0.015 ng/mL (< 0.028)
[2020-09-27] MEDS ORDERED: Dextrose 5% in Water 1,000 ML IV PRN (09:29)
[2020-09-27] MEDS ORDERED: Dextrose 50% Abboject 50 ML SYRINGE SLOW IVP PRN (09:29)
[2020-09-27] MEDS ORDERED: Acetaminophen 325 MG TAB PO PRN (09:29)
[2020-09-27 12:47] LABS: SARS-CoV-2 PCR by NAA Not Detected (NotDetected)
[2020-09-27 13:27] LABS: Troponin I 0.019 ng/mL (< 0.028)
[2020-09-27 21:03] VITALS: BMI 25.2
[2020-09-27] MEDS ORDERED: Insulin Regular 300 UNITS/3 ML VIAL SC PRN ×2 (21:59)
[2020-09-27] MEDS ORDERED: hydrALAZINE 20 MG/ML VIAL SLOW IVP PRN (22:42)
[2020-09-28 04:31] LABS: #Basophils 0.1 thou/uL (0.0-0.2); #Eosinphils 0.5 thou/uL (0.0-0.7); #Lymphocytes 1.5 thou/uL (1.20-3.40); #Monocytes 0.6 thou/uL (0.11-0.59); #Neutrophils 6.1 thou/uL (1.40-6.50); %Basophils 0.7 % (0.0-1.0); %Eosinophils 5.9 % (0.0-10.0); %Lymphocytes 17.5 % (21.0-51.0); %Monocytes 7.1 % (0.0-10.0); %Neutrophils 68.9 % (42.0-75.0); Hemoglobin 12.1 g/dL (14.0-18.0); Mean Corpuscular HGB CONC 33.4 g/dL (32.0-36.0); Mean Corpuscular Hemoglobin 28.4 pg (27.0-31.0); Mean Corpuscular Volume 85.1 fL (78.0-98.0); Mean Platelet Volume 9.2 fL (7.4-10.4); Platelet Count 135 thou/uL (130-400); RBC Distribution Width 12.1 % (11.5-14.5); Red Blood Cell (RBC) Count 4.26 mill/uL (4.70-6.10); White Blood Cell (WBC) Count 8.8 thou/uL (4.8-10.8)
[2020-09-28 04:49] LABS: Anion Gap 12 mmol/L (10-20); BUN (Urea Nitrogen) 17 mg/dL (8.4-25.7); Calc. Creatinine Clearance 79 mL/min (70-130); Calcium 8.8 mg/dL (7.8-10.44); Carbon Dioxide 23 mmol/L (23-31); Chloride 104 mmol/L (98-107); Glucose 228 mg/dL (80-115); Potassium 4.7 mmol/L (3.5-5.1); Sodium 134 mmol/L (136-145)
[2020-09-28] MEDS ORDERED: ALPRAZolam 0.5 MG TAB PO PRN (08:56)
[2020-09-28] MEDS ORDERED: Docusate 100 MG CAP PO SCH (09:00)
[2020-09-28] MEDS ORDERED: Aspirin 325 mg Enteric Coated Tablet PO SCH (09:00)
[2020-09-28] MEDS ORDERED: Lisinopril 5 MG TAB PO SCH (09:00)
[2020-09-28] MEDS ORDERED: Tamsulosin HCl 0.4 MG CAP PO SCH (09:00)
[2020-09-28] MEDS ORDERED: Carvedilol 6.25 MG TAB PO SCH (09:00)
[2020-09-28] MEDS ORDERED: Aspirin 81 mg Enteric Coated Tablet PO SCH (09:00)
[2020-09-28] MEDS ORDERED: Alogliptin 25 MG TAB PO SCH (09:00)
[2020-09-28] MEDS ORDERED: ADENOSINE 60 MG/20 ML VIAL ONE (12:43)
[2020-09-28] MEDS ORDERED: Ketorolac Tromethamine 30 MG/ML VIAL IVP SCH (14:45)
[2020-09-28 16:41] VITALS: BP 154/73; TEMP 97.8
[2020-09-28] MEDS ORDERED: Insulin Regular 300 UNITS/3 ML VIAL SC SCH (17:00)
[2020-09-28] MEDS ORDERED: Famotidine 20 MG TAB PO SCH (21:00)
[2020-09-28] MEDS ORDERED: Atorvastatin Calcium 40 MG TAB PO SCH (21:00)
== END 2020-09-28 19:12 | disposition home or self-care (01) ==
LOC: ERS 04:28 → ERHOLD 05:57 → 2NO 18:54
PROVIDERS: ADMIT Student in an Organized Health Care Education/Training Program; ATTEND Internal Medicine
DX: R07.89 Other chest pain (principal); M25.512 Pain in left shoulder; E11.649 Type 2 diabetes mellitus with hypoglycemia without coma; I12.9 Hypertensive chronic kidney disease with stage 1 through stage 4 chronic kidney disease, or unspecified chronic kidney disease; E11.22 Type 2 diabetes mellitus with diabetic chronic kidney disease; N18.2 Chronic kidney disease, stage 2 (mild); I25.10 Atherosclerotic heart disease of native coronary artery without angina pectoris; E87.1 Hypo-osmolality and hyponatremia; F03.90 Unspecified dementia, unspecified severity, without behavioral disturbance, psychotic disturbance, mood disturbance, and anxiety; I25.2 Old myocardial infarction; Z79.4 Long term (current) use of insulin; Z79.82 Long term (current) use of aspirin; Z79.899 Other long term (current) drug therapy; Z88.0 Allergy status to penicillin; Z88.8 Allergy status to other drugs, medicaments and biological substances; Z95.1 Presence of aortocoronary bypass graft; Z20.822 Contact with and (suspected) exposure to COVID-19
CPT/HCPCS: 71045; 73030; 78452; 80048; 80053; 82962 ×2; 83690; 83735; 83880; 84484 ×2; 85025 ×2; 93005 ×2; 93017; 93306; 94760; 99285; A9500; U0003; U0005; 36415; 36416; 87635; 93010; 96374; 96375; G0378; J0153; J0360; J1815; J1885